=== PATIENT | male | born 1945 | race Caucasian/White ===

== ENCOUNTER 2016-06-10 08:52 | Emergency (ER) | payer MEDICARE, BC ==
[2016-06-10] VITALS (10 sets, daily range): BP systolic 86–128; BP diastolic 52–110; PULSE 91–140; RESP 14–18; TEMP 97.9; O2SAT 97–98
[~2016-06-10] VITALS: Ht 176.5 cm; Wt 89.1 kg
[~2016-06-10 08:52] MED LIST: EXCEDRIN; IBUP100S30 PO
[2016-06-10] MEDS ORDERED: METOPROLOL TARTRATE 5 MG/5 ML VIAL IV PUSH ONE (09:15)
[2016-06-10] MEDS ORDERED: SODIUM CHLORIDE 0.9% FLUSH 10 ML FLUSH IVF PRN (09:15)
[2016-06-10] MEDS ORDERED: DILTIAZEM HCL 25 MG/5 ML VIAL IV ONE (09:15)
--- NOTE | 2016-06-10 09:17 | PD ---
HPI Chief Complaint: Cardiac Complaint Time Seen by Provider: 09:01 Travel History International Travel<30 days: No Contact w/Intl Traveler<30days: No Traveled to known affect area: No History of Present Illness HPI Patient is a 70-year-old male with history of CAD status post 3 vessel CABG, SVT status post ablation here with complaint of palpitations. Patient states that recently he's been having some palpitations. He was seen at his PCPs office yesterday and had an episode of SVT but with Valsalva and an extra dose of his home metoprolol he was able to control it. Today he bent over and had a recurrent episode, prompting his ED visit. With this he gets somewhat lightheaded, dizzy but denies any chest pain, shortness of breath. He sees Dr. Randhawa is his student support advisor. PFSH Past Medical History AAA: Yes Heart Rhythm Problems: Yes (HX SVT) Cardiovascular Problems: Yes Diabetes: Yes Kidney Stones: Yes Neurologic: Yes (DEGENERATIVE DISC DISEASE (CERVICAL)) Tetanus Vaccination: Unknown Influenza Vaccination: No Past Surgical History Abdominal Surgery: Yes (LT HERNIAL REPAIR) Cardiac Surgery: Yes (CARDIAC ABLATION S/P SVT) Other Surgery: Yes ("TRIGGER FINGER" SX X 4) Social History Alcohol Use: No Tobacco Use: No Substance Use: No Allergies-Medications (Allergen,Severity, Reaction): Coded Allergies: No Known Allergies (Verified , 07/06/07) Reported Meds & Prescriptions Reported Meds & Active Scripts Active Reported Repatha PF Inj (Evolocumab PF Inj) 140 Mg/Ml Syr Coq-10 (Coenzyme Q10 (Ubidecarenone)) 400 Mg Cap Vitamin D3 (Cholecalciferol) 5,000 Unit Cap 5,000 Units PO DAILY Metoprolol Tartrate 75 Mg Tab 75 Mg PO BID Glimepiride 1 Mg Tab 1 Mg PO DAILY Take with breakfast or first main meal Aspirin 81 Mg Chew 81 Mg CHEW DAILY Cilostazol 100 Mg Tab 100 Mg PO BID [Excedrin] Review of Systems Except as stated in HPI: all other systems reviewed are Neg Physical Exam Narrative GENERAL: Well-appearing male in no acute distress SKIN: Focused skin assessment warm/dry. HEAD: Normocephalic. EYES: No scleral icterus. No injection or drainage. ENT: Mucous membranes pink and moist. NECK: Supple CARDIOVASCULAR: Tachycardic with heart rate in the 140s, regular rhythm. No murmur appreciated. RESPIRATORY: No accessory muscle use. Clear to auscultation. Breath sounds equal bilaterally. GASTROINTESTINAL: Abdomen soft, non-tender, nondistended. MUSCULOSKELETAL: No obvious deformities. No edema. NEUROLOGICAL: Awake and alert. Motor grossly within normal limits. Normal speech. PSYCHIATRIC: Appropriate mood and affect; insight and judgment normal. Data Data Last Documented VS Vital Signs Date Time Temp Pulse Resp B/P Pulse Ox O2 Delivery O2 Flow Rate FiO2 06/10/16 10:00 94 113/76 06/10/16 09:06 14 98 Nasal Cannula 2 06/10/16 08:53 97.9 Orders Electrocardiogram (06/10/16 09:01) Basic Metabolic Panel (Bmp) (06/10/16 09:01) Complete Blood Count With Diff (06/10/16 09:01) Magnesium (Mg) (06/10/16 09:01) Ecg Monitoring (06/10/16 09:01) Iv Access Insert/Monitor (06/10/16 09:01) Oximetry (06/10/16 09:01) Sodium Chloride 0.9% Flush (Ns Flush) (06/10/16 09:15) Metoprolol Tartrate Inj (Lopressor Inj) (06/10/16 09:15) Diltiazem Inj (Cardizem Inj) (06/10/16 09:15) Electrocardiogram (06/10/16 ) Labs Laboratory Tests Test 06/10/16 08:50 White Blood Count 10.4 TH/MM3 Red Blood Count 4.63 MIL/MM3 Hemoglobin 13.6 GM/DL Hematocrit 39.7 % Mean Corpuscular Volume 85.7 FL Mean Corpuscular Hemoglobin 29.3 PG Mean Corpuscular Hemoglobin 34.2 % Concent Red Cell Distribution Width 12.9 % Platelet Count 292 TH/MM3 Mean Platelet Volume 8.1 FL Neutrophils (%) (Auto) 63.8 % Lymphocytes (%) (Auto) 28.1 % Monocytes (%) (Auto) 3.8 % Eosinophils (%) (Auto) 2.5 % Basophils (%) (Auto) 1.8 % Neutrophils # (Auto) 6.7 TH/MM3 Lymphocytes # (Auto) 2.9 TH/MM3 Monocytes # (Auto) 0.4 TH/MM3 Eosinophils # (Auto) 0.3 TH/MM3 Basophils # (Auto) 0.2 TH/MM3 CBC Comment DIFF FINAL Differential Comment Sodium Level 139 MEQ/L Potassium Level 4.3 MEQ/L Chloride Level 104 MEQ/L Carbon Dioxide Level 25.7 MEQ/L Anion Gap 9 MEQ/L Blood Urea Nitrogen 17 MG/DL Creatinine 1.71 MG/DL Estimat Glomerular Filtration 40 ML/MIN Rate Random Glucose 115 MG/DL Calcium Level 9.4 MG/DL Magnesium Level 2.0 MG/DL [facility] Medical Decision Making Medical Screen Exam Complete: Yes Emergency Medical Condition: Yes Medical Record Reviewed: Yes Differential Diagnosis 70-year-old male with history of CAD status post CABG, SVT status post ablation here with complaint of palpitations. Differential includes arrhythmia, electrolyte abnormality, symptomatic anemia and less likely ACS, thyroid storm. Narrative Course Patient placed on monitor, IV established and blood obtained. A twelve-lead EKG shows narrow complex regular tachycardia with evidence of P waves buried at the end of the T waves, rate 142. I suspect this is an atrial tachycardia and not SVT. I do not see any evidence of flutter waves. Patient was given 20 mg of diltiazem IV. Patient had electrical conversion to sinus rhythm and a twelve -lead EKG was obtained to document same. CBC, BMP, magnesium unremarkable. I spoke with his student support advisor, Dr. Randhawa who agrees with a been his metoprolol to 100 twice a day and outpatient follow-up. Diagnosis Primary Impression: Atrial tachycardia Additional Impression: Palpitations Referrals: Katiana Randhawa MD 3 days Call for follow-up appointment. Patient Instructions: Atrial Tachycardia (ED), General Instructions Additional Instructions: Increase metoprolol to 100 mg twice a day. Follow-up with Dr. Randhawa as discussed. Med/Other Pt SpecificInfo: Prescription(s) given, Existing Med Changed Scripts Metoprolol Tartrate 100 Mg [id number] Mg PO BID #60 TAB Ref 0 Prov:Camilla Nowak MD 06/10/16 Disposition: 01 DISCHARGE HOME Condition: Stable Camilla Nowak MD Jun 10, 2016 09:17
[2016-06-10 09:27] LABS: AUTOMATED NEUTROPHIL # 6.7 TH/MM3 (1.8-7.7); BASOPHIL # 0.2 TH/MM3 (0-0.2); BASOPHIL % 1.8 % (0.0-2.0); EOSINOPHIL # 0.3 TH/MM3 (0-0.4); EOSINOPHIL % 2.5 % (0.0-4.0); HEMATOCRIT 39.7 % (39.0-51.0); HEMO FLAGS DIFF FINAL; LYMPH % 28.1 % (9.0-44.0); LYMPHOCYTE # 2.9 TH/MM3 (1.0-4.8); MEAN CELL VOLUME 85.7 FL (80.0-100.0); MEAN CORPUSCULAR HEMOGLOBIN 29.3 PG (27.0-34.0); MEAN CORPUSCULAR HGB CONC 34.2 % (32.0-36.0); MONO % 3.8 % (0.0-8.0); NEUT % 63.8 % (16.0-70.0); PLATELET COUNT 292 TH/MM3 (150-450); RED BLOOD COUNT 4.63 MIL/MM3 (4.50-5.90); RED CELL DISTRIBUTION WIDTH 12.9 % (11.6-17.2); WHITE BLOOD COUNT 10.4 TH/MM3 (4.0-11.0)
[2016-06-10 09:44] LABS: BICARBONATE 25.7 MEQ/L (21.0-32.0); POTASSIUM 4.3 MEQ/L (3.5-5.1)
[2016-06-10] MEDS ORDERED: CILO100T PO (09:51)
[2016-06-10] MEDS ORDERED: COEN400C (09:55)
[2016-06-10] MEDS ORDERED: CHOL5000 PO (09:55)
[2016-06-10] MEDS ORDERED: EVOL1.7I (09:55)
[2016-06-10] MEDS ORDERED: METO-426 PO (09:55)
[2016-06-10] MEDS ORDERED: ASPI81CH CHEW (09:55)
[2016-06-10] MEDS ORDERED: GLIM1TAB PO (09:55)
[2016-06-10] MEDS ORDERED: METO100T PO (10:39)
--- NOTE | 2016-06-10 12:26 | EKG ---
Date Performed: 06/10/2016 Time Performed: 08:52:22 PTAGE: 70 years EKG: SVT BORDERLINE LEFT AXIS DEVIATION LEFT VENTRICULAR HYPERTROPHY AND ST-T CHANGE ABNORMAL EC G NO PREVIOUS TRACING DOCTOR: David Iverson Interpretating Date/Time 06/10/2016 12:24:28
--- NOTE | 2016-06-10 12:26 | EKG ---
Date Performed: 06/10/2016 Time Performed: 09:25:24 PTAGE: 70 years EKG: Sinus rhythm POSSIBLE LEFT ATRIAL ENLARGEMENT LEFT VENTRICULAR HYPERTROPHY AND ST-T CHANGE ABNORMAL ECG PREVIOUS TRACING : 07/06/2007 11.11 DOCTOR: David Iverson Interpretating Date/Time 06/10/2016 12:24:13
== END 2016-06-10 10:54 | disposition home or self-care (01) ==
LOC: NEPC 08:52
DX: I47.1 Supraventricular tachycardia (principal); R00.2 Palpitations; R94.31 Abnormal electrocardiogram [ECG] [EKG]; E11.9 Type 2 diabetes mellitus without complications; R42 Dizziness and giddiness
CPT/HCPCS: 80048; 83735; 85025; 93005; 96374

== ENCOUNTER 2017-10-09 11:00 | Inpatient (IN) ==
[2017-10-09] MEDS ORDERED: Iohexol 300 MG/ML 50 ML Vial (for Rad Diag) IVCONTRAST ONE (12:00)
[2017-10-09] MEDS ORDERED: Phenylephrine/NS 1000 MCG/10ML Syringe IV.PUSH ONE (12:00)
[2017-10-09] MEDS ORDERED: Neostigmine Inj 5 MG/5 ML Syringe IV.PUSH ONE (12:00)
[2017-10-09] MEDS ORDERED: Lidocaine PF 1% Inj 5 ML Syringe INFILTRATN ONE (12:00)
[2017-10-09] MEDS ORDERED: Glycopyrrolate Inj 1 MG/5 ML Syringe IV.PUSH ONE (12:00)
[2017-10-09] MEDS ORDERED: Metoprolol Tartrate 25 MG Tablet PO SCH (13:00)
[2017-10-09] MEDS ORDERED: Chlorhexidine Gluconate 2% 1 Pack (2 Cloths) TOPICAL SCH (13:00)
[2017-10-09] MEDS ORDERED: Sodium Chlor 0.9% Inj 500 ML IV.SIG SCH (13:00)
[2017-10-09 13:23] LABS: Baso # (Auto) 0.1 th/mm3 (0.0-0.2); Baso % (Auto) 1.5 % (0.0-2.0); Eos # (Auto) 0.3 th/mm3 (0.0-0.4); Eos % (Auto) 3.5 % (0.0-4.0); Hematocrit 39.4 % (39.0-51.0); Hemoglobin 13.5 gm/dL (13.0-17.0); Lymph # (Auto) 2.4 th/mm3 (1.0-4.8); Lymph % (Auto) 28.5 % (9.0-44.0); Mean Corpuscular HGB Conc 34.3 % (32.0-36.0); Mean Corpuscular Hemoglobin 29.8 pg (27.0-34.0); Mean Corpuscular Volume 86.8 fL (80.0-100.0); Mean Platelet Volume 7.3 fL (7.0-11.0); Mono # (Auto) 0.5 th/mm3 (0.0-0.9); Mono % (Auto) 6.6 % (0.0-8.0); Neut % (Auto) 59.9 % (16.0-70.0); Platelet Count 235 th/mm3 (150-450); Red Blood Count 4.54 mil/mm3 (4.50-5.90); Red Cell Distribution Width 13.1 % (11.6-17.2); White Blood Count 8.3 th/mm3 (4.0-11.0)
[2017-10-09] MEDS ORDERED: Bupivacaine/Epinephrine PF Inj 0.5% 30 ML Vial ONE (14:18)
[2017-10-09] MEDS ORDERED: Protamine Sulfate Inj 50 MG/5 ML Vial ONE (14:18)
[2017-10-09] MEDS ORDERED: Heparin 10,000 UNITS/10 ML Vial (for IV use) ONE (14:18)
[2017-10-09] MEDS ORDERED: Heparin - SQ 10,000 UNITS/ML Vial ONE (14:19)
[2017-10-09] MEDS ORDERED: fentaNYL Citrate Inj 250 MCG/5 ML Ampul ONE (14:49)
[2017-10-09] MEDS ORDERED: fentaNYL Citrate Inj 100 MCG/2 ML Ampul ONE (14:49)
[2017-10-09] MEDS ORDERED: Atropine Inj 1 MG/10 ML Syringe IV.PUSH PRN (18:17)
[2017-10-09] MEDS ORDERED: Metoprolol Inj 5 MG/5 ML Vial IV.PUSH PRN (18:20)
[2017-10-09] MEDS ORDERED: Morphine Inj 4 MG/ML Vial IV.PUSH PRN (18:20)
--- NOTE | 2017-10-10 08:58 | ECG ---
Date Performed: 10/09/2017 Time Performed: 12:32:25 PTAGE: 71 years EKG: Sinus rhythm LEFT VENTRICULAR HYPERTROPHY AND ST-T CHANGE ABNORMAL ECG PREVIOUS TRACING : 06/10/2016 09.25 DOCTOR: Booker Roberto Interpretating Date/Time 10/10/2017 08:57:15
[2017-10-10] MEDS ORDERED: dilTIAZem CD 240 MG Capsule PO SCH (09:00)
[2017-10-10 09:18] VITALS: BP 142/75; RESP 18; TEMP 97.5
[2017-10-10 09:52] VITALS: O2SAT 100
[2017-10-10 10:17] VITALS: PULSE 106
--- NOTE | 2017-10-10 11:06 | MP ---
cc: Keven Gibson MDClayton DO DATE OF OPERATION: 10/09/2017 DATE OF PROCEDURE: 10/09/2017 PREOPERATIVE DIAGNOSIS: Infrarenal abdominal aortic aneurysm. POSTOPERATIVE DIAGNOSIS: Infrarenal abdominal aortic aneurysm. OPERATIVE PROCEDURE: Percutaneous endovascular aneurysm repair. SURGEON: Keven Gibson MD AUT[employer]ATION AND CONTROLS MANAGER: NAEEM Schumacher ANESTHESIA: General endotracheal/local. DESCRIPTION OF PROCEDURE: With the patient in the supine position general endotracheal anesthesia was induced, the abdomen, both groins, and thighs prepped with Betadine and draped in a sterile fashion. Two grams of Ancef were administered intravenously. Following a protocol a timeout, the skin and subcutaneous tissue surrounding the proposed right and left common femoral access sites were preemptively infiltrated with 0.5% Marcaine with epinephrine. The right and left common femoral arteries were accessed under ultrasound guidance with an 18-gauge needles, J wire was advanced into both external iliac arteries and the arterial puncture needle was exchanged for 7-Moroccan hemostatic sheaths. Angled Glidewires were negotiated into the suprarenal aorta and Perclose devices predeployed at the 10 and 2 o'clock positions bilaterally. The 7-[place]oc[place] hemostatic sheaths were then replaced, angled Glidewire was exchanged over a Berenstein catheters for Amplatz guidewires, which were parked within the thoracic aorta. An 18-Moroc[place] hemostatic sheath was deployed via the right femoral, 12-[place]oc[place] hemostatic sheath via the left femoral and advanced into the sub-renal aorta. The patient was systemically heparinized with 5000 units. A marker pigtail catheter was advanced via the left femoral sheath into the suprarenal aorta and flush aortogram delineated the origin of the mesenteric and renal arteries. The main body endoprosthesis was then advanced and predeployed immediately distal to the origin of the renal arteries. The contralateral gate was engaged with an angled Glidewire Berenstein catheter combination. A compliant balloon was then advanced into the main body endoprosthetic lumen and partially inflated to confirm endoluminal position. The marker pigtail catheter was then replaced via the left femoral sheath, diluted contrast injected via the left femoral sheath to allow accurate delineation of the left iliac bifurcation and selection of the contralateral limb length. Two separate iliac limb extenders were placed within the left. The marker pigtail catheter was then replaced and flushed aortogram again, accurately delineating the origin of the renal arteries and appropriate positioning of the proximal deployment seal zone. The proximal deployment was then completed. The aortic and iliac seal and overlap areas were balloon dilated with a Q-tip the compliant balloon. The aortic bifurcation was somewhat tight, stenotic, particularly within the left iliac and required balloon dilatation with a 14 x 4 noncompliant balloon inflated to 4 atmospheres. Completion angiogram revealed no technical defects or endoleaks. A tiny, approximately 1 mm, outpouching of the left lateral aortic wall was noted immediately at and slightly distal to the origin of the left renal artery. In retrospect, this small outpouching was noted on the preprocedure imaging and predeployment imaging studies. At the completion of the procedure the predeployed Perclose devices were secured as the hemostatic sheaths were removed with excellent hemostasis. Heparin was reversed with 20 mg of protamine. Strict hemostasis was assured. Biphasic Doppler flow confirmed within the pedal arteries. There were no operative complications. The patient returned to the recovery room in stable condition, having tolerated the procedure well. MD GIRISH Georges/jayne , 10:17 AM , 10:30 AM
== END 2017-10-10 10:50 | disposition home or self-care (01) ==
LOC: HSDI 11:27 → HCPC 19:38
PROVIDERS: ADMIT Surgery Vascular Surgery; ATTEND Surgery Vascular Surgery